=== PATIENT | male | born 1955 | race African-American/Black ===

== ENCOUNTER 2017-12-22 13:10 | Emergency (ER) | payer MEDICAID ==
[~2017-12-22] VITALS: Ht 182.9 cm; Wt 93.0 kg
[2017-12-22] MEDS ORDERED: IBUPROFEN 400MG TABLET PO ONE (14:45)
[2017-12-22 14:58] VITALS: BP 129/69
== END 2017-12-22 18:02 | disposition home or self-care (01) ==
LOC: ER 17:19
DX: S93.492A Sprain of other ligament of left ankle, initial encounter (principal); G40.909 Epilepsy, unspecified, not intractable, without status epilepticus; Z88.6 Allergy status to analgesic agent; Z90.49 Acquired absence of other specified parts of digestive tract; V18.0XXA Pedal cycle driver injured in noncollision transport accident in nontraffic accident, initial encounter; Y93.89 Activity, other specified; Y92.488 Other paved roadways as the place of occurrence of the external cause
CPT/HCPCS: 73630; 99284

== ENCOUNTER 2019-11-18 12:44 | Emergency (ER) | payer MEDICAID ==
[~2019-11-18] VITALS: Ht 182.9 cm; Wt 93.0 kg
[2019-11-18] MEDS ORDERED: PHEN50TA PO (12:54)
[2019-11-18 13:26] LABS: BASOPHILS % 0.1 % (0.0-2.0); HEMATOCRIT. 37.2 % (42.0-52.0); HEMOGLOBIN. 12.5 g/dL (14.0-18.0); LYMPHOCYTES % 27.1 % (20.0-50.0); MEAN CORPUSCULAR HEMOGLOBIN 31.9 pg (28.0-32.0); MEAN CORPUSCULAR VOLUME 94.9 fL (80.0-94.0); MEAN PLATELET VOLUME 7.8 fl (7.4-10.4); MONOCYTES % 10.5 % (2.0-8.0); NEUTROPHILS % 62.3 % (40.0-76.0); PLATELET 203 x1000/uL (130-400); RED BLOOD CELL COUNT 3.92 mill/uL (4.7-6.1); RED CELL DISTRIBUTION WIDTH 13.2 % (11.6-14.6)
[2019-11-18 13:31] LABS: CHLORIDE 108 mEq/L (98-107)
[2019-11-18 13:34] LABS: ETHANOL BLOOD < 10 mg/dL
[2019-11-18 13:47] LABS: CLARITY URINE CLEAR (CLEAR); COLOR URINE DARK YELLOW (YELLOW); KETONES URINE TRACE (NEGATIVE); LEUKOCYTE ESTERASE URINE NEGATIVE (NEGATIVE); NITRITE URINE NEGATIVE (NEGATIVE); OCCULT BLOOD URINE NEGATIVE (NEGATIVE); PH URINE 5.5 (4.5-8.0); PROTEIN URINE NEGATIVE (NEGATIVE); SPECIFIC GRAVITY URINE 1.028 (1.005-1.030); UROBILINOGEN URINE 0.2 E.U./dL (0.2-1.0)
[2019-11-18 14:03] LABS: *BARBITURATES SCREEN URINE NEGATIVE (NEGATIVE); *BENZODIAZEPINES SCREEN URINE NEGATIVE (NEGATIVE)
[2019-11-18 14:04] LABS: *COCAINE SCREEN URINE NEGATIVE (NEGATIVE); METHADONE URINE SCREEN NEGATIVE (NEGATIVE); OPIATES URINE SCREEN NEGATIVE (NEGATIVE); PHENCYCLIDINE URINE SCREEN NEGATIVE (NEGATIVE)
[2019-11-18 14:06] LABS: *AMPHETAMINES SCREEN URINE NEGATIVE (NEGATIVE); CANNABINOID URINE SCREEN NEGATIVE (NEGATIVE)
[2019-11-18 14:50] VITALS: BP 128/66
== END 2019-11-18 14:51 | disposition home or self-care (01) ==
LOC: ER 12:44
DX: R25.1 Tremor, unspecified (principal); R56.9 Unspecified convulsions; Z88.8 Allergy status to other drugs, medicaments and biological substances; Z98.890 Other specified postprocedural states
CPT/HCPCS: 36415; 80053; 80185; 80305; 80320; 81003; 82962; 85025; 99284; G0480